=== PATIENT | female | born 1955 | race Caucasian/White ===

== ENCOUNTER 2021-02-22 19:48 | Emergency (ER) | payer OTHER ==
[~2021-02-22] VITALS: Ht 149.9 cm; Wt 57.2 kg
[~2021-02-22 19:48] MED LIST: AMBIEN CR12.5 MG/BL; DIAZEPAM10 MG; PROTONIX40 MG PO; RANITIDINE HCL300 MG PO; SUCRALFATE1 G PO; ZOLOFT100 MG
[2021-02-22] MEDS ORDERED: ZOLPIDEM TART1.75 MG (19:56)
[2021-02-23] MEDS ORDERED: NAPROXEN375 MG PO (08:23)
[2021-02-23] MEDS ORDERED: LEVOFLOXACIN500 MG PO (08:23)
[2021-02-23] MEDS ORDERED: MUPIROCIN15 GM TOP (08:25)
== END 2021-02-23 09:12 | disposition home or self-care (01) ==
LOC: ER 19:48
DX: N39.0 Urinary tract infection, site not specified (principal); I87.2 Venous insufficiency (chronic) (peripheral); K43.9 Ventral hernia without obstruction or gangrene

== ENCOUNTER 2021-03-13 08:52 | Outpatient (CLI) | payer OTHER ==
[~2021-03-13 08:52] MED LIST changes: +LEVOFLOXACIN500 MG PO; +MUPIROCIN15 GM TOP; +NAPROXEN375 MG PO; +ZOLPIDEM TART1.75 MG
== END 2021-03-13 09:06 | disposition home or self-care (01) ==
LOC: MAMO-SONO 08:52
PROVIDERS: ATTEND Internal Medicine
DX: N60.02 Solitary cyst of left breast (principal); N60.01 Solitary cyst of right breast; Z12.31 Encounter for screening mammogram for malignant neoplasm of breast

== ENCOUNTER 2021-03-13 10:41 | Outpatient (CLI) | payer OTHER | END 2021-03-13 10:46 | disposition home or self-care (01) | LOC: NUCLEAR 10:41 | PROVIDERS: ATTEND Internal Medicine | DX: I87.2 Venous insufficiency (chronic) (peripheral) (principal); R01.1 Cardiac murmur, unspecified; R00.0 Tachycardia, unspecified ==

== ENCOUNTER 2021-03-13 11:19 | Outpatient (CLI) | payer OTHER | END 2021-03-13 11:21 | disposition home or self-care (01) | LOC: LAB 11:19 | PROVIDERS: ATTEND Internal Medicine | DX: E03.8 Other specified hypothyroidism (principal); E55.9 Vitamin D deficiency, unspecified; E78.00 Pure hypercholesterolemia, unspecified; E11.69 Type 2 diabetes mellitus with other specified complication; D50.0 Iron deficiency anemia secondary to blood loss (chronic); N39.0 Urinary tract infection, site not specified ==

== ENCOUNTER 2021-03-18 14:50 | Inpatient (IN) | payer OTHER ==
[~2021-03-18] VITALS: Ht 149.9 cm; Wt 56.7 kg
[2021-03-19] MEDS ORDERED: BUPROPION HCL150 M1 (16:07)
[2021-03-19] MEDS ORDERED: CLONAZEPAM0.5 MG (16:07)
== END 2021-03-20 11:28 | disposition designated cancer center or children's hospital (05) | DRG 311 ==
LOC: ER 14:50 → ICU-2 03-19 10:15 → SEC-K 03-19 10:15 → ICU-2 03-19 13:43
PROVIDERS: ADMIT Internal Medicine; ATTEND Internal Medicine
PROC: B24BZZZ Ultrasonography of Heart with Aorta (ICD-10-PCS; principal; 2021-03-19)
PROC: BW40ZZZ Ultrasonography of Abdomen (ICD-10-PCS; 2021-03-19)
DX: I24.9 Acute ischemic heart disease, unspecified (principal); I25.10 Atherosclerotic heart disease of native coronary artery without angina pectoris; I87.2 Venous insufficiency (chronic) (peripheral); E86.0 Dehydration; K29.60 Other gastritis without bleeding; K46.9 Unspecified abdominal hernia without obstruction or gangrene; E03.8 Other specified hypothyroidism; Z20.822 Contact with and (suspected) exposure to COVID-19

== ENCOUNTER 2021-06-23 14:28 | Inpatient (IN) | payer OTHER ==
[~2021-06-23] VITALS: Ht 165.1 cm; Wt 186.0 kg
[~2021-06-23 14:28] MED LIST changes: +BUPROPION HCL150 M1; +CLONAZEPAM0.5 MG
[2021-06-23] MEDS ORDERED: PROTONIX40 MG (14:40)
[2021-06-23] MEDS ORDERED: PEPCID AC20 MG (14:40)
[2021-06-25] MEDS ORDERED: ONDANSETRON HCL8 MG (10:59)
[2021-06-25] MEDS ORDERED: METOCLOPRAMIDE10 MG (10:59)
[2021-06-25] MEDS ORDERED: ATORVASTATIN CA20 MG (10:59)
[2021-06-25] MEDS ORDERED: METOPROLOL SUCC25 MG (11:00)
[2021-06-25] MEDS ORDERED: BUPROPION HCL150 M1 (11:00)
[2021-07-07] MEDS ORDERED: AMLODIPINE BESYL5 MG PO (11:42)
[2021-07-07] MEDS ORDERED: LOSARTAN POTASS50 MG PO (11:43)
[2021-07-07] MEDS ORDERED: CARAFATE1 GM PO (11:44)
[2021-07-07] MEDS ORDERED: LEVOTHYROXINE25 MCG PO (11:45)
[2021-07-07] MEDS ORDERED: GABAPENTIN300 MG PO (11:46)
[2021-07-07] MEDS ORDERED: SIMETHICONE125 M1 PO (11:47)
[2021-07-07] MEDS ORDERED: PROTONIX40 MG PO (11:48)
[2021-07-07] MEDS ORDERED: PEPCID AC20 MG PO (11:48)
[2021-07-07] MEDS ORDERED: BUTALBIT-ACETA1 EACH PO (11:51)
[2021-07-07] MEDS ORDERED: CLONAZEPAM1 MG PO (11:52)
[2021-07-07] MEDS ORDERED: ZOLPIDEM TARTRA10 MG PO (11:52)
== END 2021-07-07 13:58 | disposition home or self-care (01) | DRG 417 ==
LOC: ER 14:28 → SURH 06-24 20:20
PROVIDERS: Colon & Rectal Surgery; ADMIT Internal Medicine; ATTEND Internal Medicine
PROC: BW40ZZZ Ultrasonography of Abdomen (ICD-10-PCS; 2021-06-24)
PROC: 05HY33Z Insertion of Infusion Device into Upper Vein, Percutaneous Approach (ICD-10-PCS; 2021-06-25)
PROC: CF241ZZ Tomographic (Tomo) Nuclear Medicine Imaging of Gallbladder using Technetium 99m (Tc-99m) (ICD-10-PCS; 2021-06-26)
PROC: BF522Z0 Other Imaging of Gallbladder using Fluorescing Agent, Intraoperative (ICD-10-PCS; 2021-07-02)
PROC: 3E0F7SF Introduction of Other Gas into Respiratory Tract, Via Natural or Artificial Opening (ICD-10-PCS; 2021-07-02)
PROC: 0FT44ZZ Resection of Gallbladder, Percutaneous Endoscopic Approach (ICD-10-PCS; principal; 2021-07-02 15:45)
DX: K81.1 Chronic cholecystitis (principal); K27.4 Chronic or unspecified peptic ulcer, site unspecified, with hemorrhage; I24.9 Acute ischemic heart disease, unspecified; D68.8 Other specified coagulation defects; E86.0 Dehydration; I10 Essential (primary) hypertension; E87.6 Hypokalemia; F41.8 Other specified anxiety disorders; K29.60 Other gastritis without bleeding; Z20.822 Contact with and (suspected) exposure to COVID-19

== ENCOUNTER 2022-01-30 12:28 | Inpatient (IN) | payer OTHER ==
[~2022-01-30] VITALS: Ht 167.6 cm; Wt 65.8 kg
[~2022-01-30 12:28] MED LIST changes: +AMLODIPINE BESYL5 MG PO; +ATORVASTATIN CA20 MG; +BUTALBIT-ACETA1 EACH PO; +CARAFATE1 GM PO; +CLONAZEPAM1 MG PO; +GABAPENTIN300 MG PO; +LEVOTHYROXINE25 MCG PO; +LOSARTAN POTASS50 MG PO; +METOCLOPRAMIDE10 MG; +METOPROLOL SUCC25 MG; +ONDANSETRON HCL8 MG; +PEPCID AC20 MG; +PEPCID AC20 MG PO; +PROTONIX40 MG; +SIMETHICONE125 M1 PO; +ZOLPIDEM TARTRA10 MG PO
--- NOTE | 2022-01-30 13:24 | NUR ---
PTE REFIERE MUCHO DOLOR ABDOMINAL ACOMPANADO DE DIARREAS X 4 Y MARY NAUSEAS. PTE REFIERE QUE FUE OPERADA DE VESICULA PARA DICIMEBRE EL DR,TOUS Y EL INTERNISTA ES ESTEBAN CAMARA. SE ACOMODA E MIA.
--- NOTE | 2022-01-30 13:54 | NUR ---
PTE EVALUADA POR EL DR EMANUEL QUIEN ORDENA EL [place]. SE ORIENTA SOBRE EL TX ORDENADO, LO CUAL REFIERE ENTENDER. SE REALIZAN PRUEBAS DE LABORATORIO Y SE ADMINISTRAN MEDICAMENTOS ANURADHA ORDEN MEDICA Y SIGUIENDO MEDIDAS ASEPTICAS.
--- NOTE | 2022-01-30 16:06 | NUR ---
PTE ALERTA Y ORIENTADA X 3 ESFERAS EN COMPANIA DE FAMILIAR,REFIERE DOLOR AL MOMENTO DE LA BARBI,SE LE NOTIFICA A DR ESCALONA QUIEN ORDENA MEDICAMENTOS Y SE EJECUTA ORDEN MEDICA.PTE BAJO OBSERVACION.
[2022-02-13] MEDS ORDERED: DILTIAZEM ER120 M2 PO (08:21)
[2022-02-13] MEDS ORDERED: CARAFATE1 GM PO (08:21)
[2022-02-13] MEDS ORDERED: ZOLPIDEM TARTRAT5 MG PO (08:21)
[2022-02-13] MEDS ORDERED: INTESTINEX680 M1 PO (08:21)
[2022-02-13] MEDS ORDERED: CLONAZEPAM1 MG PO (08:21)
[2022-02-13] MEDS ORDERED: CYMBALTA60 MG PO (08:21)
[2022-02-13] MEDS ORDERED: LEVOTHYROXINE25 MCG PO (08:21)
[2022-02-13] MEDS ORDERED: GABAPENTIN800 MG PO (08:21)
[2022-02-13] MEDS ORDERED: LOSARTAN POTASS25 MG PO (08:21)
[2022-02-13] MEDS ORDERED: ATORVASTATIN CA20 MG PO (08:21)
[2022-02-13] MEDS ORDERED: VITAMIN D3125 MC2 PO (08:21)
[2022-02-13] MEDS ORDERED: ISOSORBIDE MONO30 MG PO (08:21)
[2022-02-13] MEDS ORDERED: PANTOPRAZOLE SO40 MG PO (08:21)
[2022-02-13] MEDS ORDERED: LOSARTAN POTASS50 MG PO (08:21)
== END 2022-02-13 16:15 | disposition home or self-care (01) | DRG 392 ==
LOC: ER 12:28 → SEC-K 18:39 → MEDI 18:39
PROVIDERS: ADMIT Internal Medicine; ATTEND Internal Medicine
PROC: BW21YZZ Computerized Tomography (CT Scan) of Abdomen and Pelvis using Other Contrast (ICD-10-PCS; 2022-01-30)
PROC: 02HV33Z Insertion of Infusion Device into Superior Vena Cava, Percutaneous Approach (ICD-10-PCS; 2022-02-01)
PROC: B246ZZZ Ultrasonography of Right and Left Heart (ICD-10-PCS; 2022-02-01)
PROC: 3E0F7SF Introduction of Other Gas into Respiratory Tract, Via Natural or Artificial Opening (ICD-10-PCS; 2022-02-03)
PROC: BW21YZZ Computerized Tomography (CT Scan) of Abdomen and Pelvis using Other Contrast (ICD-10-PCS; 2022-02-03)
PROC: BW30YZZ Magnetic Resonance Imaging (MRI) of Abdomen using Other Contrast (ICD-10-PCS; 2022-02-05)
PROC: 4A02XM4 Measurement of Cardiac Total Activity, External Approach (ICD-10-PCS; principal; 2022-02-06)
PROC: 4A02XM4 Measurement of Cardiac Total Activity, External Approach (ICD-10-PCS; 2022-02-06)
PROC: 3E073KZ Introduction of Other Diagnostic Substance into Coronary Artery, Percutaneous Approach (ICD-10-PCS; 2022-02-06)
DX: K29.60 Other gastritis without bleeding (principal); I24.9 Acute ischemic heart disease, unspecified; M79.2 Neuralgia and neuritis, unspecified; E87.6 Hypokalemia; D64.9 Anemia, unspecified; E87.8 Other disorders of electrolyte and fluid balance, not elsewhere classified; I10 Essential (primary) hypertension; F32.89 Other specified depressive episodes; F43.22 Adjustment disorder with anxiety
CPT/HCPCS: 74182

== ENCOUNTER 2022-02-17 16:15 | Emergency (ER) | payer OTHER ==
[~2022-02-17] VITALS: Ht 149.9 cm; Wt 57.2 kg
[~2022-02-17 16:15] MED LIST changes: +ATORVASTATIN CA20 MG PO; +CYMBALTA60 MG PO; +DILTIAZEM ER120 M2 PO; +GABAPENTIN800 MG PO; +INTESTINEX680 M1 PO; +ISOSORBIDE MONO30 MG PO; +LOSARTAN POTASS25 MG PO; +PANTOPRAZOLE SO40 MG PO; +VITAMIN D3125 MC2 PO; +ZOLPIDEM TARTRAT5 MG PO
== END 2022-02-17 20:30 | disposition home or self-care (01) ==
LOC: ER 16:15
DX: S09.90XA Unspecified injury of head, initial encounter (principal); W18.30XA Fall on same level, unspecified, initial encounter; Y93.9 Activity, unspecified; Y92.9 Unspecified place or not applicable; Z88.0 Allergy status to penicillin; I10 Essential (primary) hypertension